=== PATIENT | female | born 1950 | race Caucasian/White ===

== ENCOUNTER 2019-05-23 10:06 | Inpatient (IN) ==
[2019-05-23] MEDS ORDERED: *HR* FentaNYL (PF) 100 MCG/2 ML VIAL ONE (10:39)
[2019-05-23] MEDS ORDERED: *HR* Midazolam HCl 2 MG/2 ML VIAL ONE (10:39)
[2019-05-23] MEDS ORDERED: *HR* Propofol 200 MG/20 ML VIAL IVP ONE (10:39)
[2019-05-23] MEDS ORDERED: Lidocaine HCL 4 ML Topical Solution (Laryng-O-Jet Kit Sterile Pak) TP ONE (10:41)
[2019-05-23] MEDS ORDERED: *HR* Succinylcholine 200 MG/10 ML VIAL IVP ONE (10:41)
[2019-05-23] MEDS ORDERED: Clindamycin 900 MG/50 ML 900 MG/50 ML IV.SOLN IVPB ONE (10:41)
[2019-05-23] MEDS ORDERED: Ondansetron 4 MG/2 ML VIAL ONE (10:41)
[2019-05-23] MEDS ORDERED: Lidocaine -MPF 2% 2 ML VIAL ONE (10:41)
[2019-05-23] MEDS ORDERED: Albuterol 2.5 MG/3 ML NEBULIZER IH PRN (10:41)
[2019-05-23] MEDS ORDERED: Tranexamic Acid 1,000 MG/10 ML VIAL ONE ×2 (10:50→13:51)
[2019-05-23] MEDS ORDERED: Famotidine 20 MG/2 ML VIAL IVP ONE (11:23)
[2019-05-23] MEDS ORDERED: Acetaminophen IV 1,000 MG/100 ML INFUS..BTL IVPB ONE (11:24)
[2019-05-23] MEDS ORDERED: *HR* HYDROmorphone 2 MG TABLET PO PRN (11:24)
[2019-05-23] MEDS ORDERED: *HR* OxyCODONE Immed Rel 5 MG TABLET PO PRN ×2 (11:24→15:55)
[2019-05-23] MEDS ORDERED: ROPIVACAINE/PF/NS 0.25% 1 EACH SYRINGE INTRAART ONE (11:28)
[2019-05-23] MEDS ORDERED: Ropivacaine/PF 0.5% 30 ML VIAL ONE (11:28)
[2019-05-23] MEDS ORDERED: Ethanol\\Acetic Acid\\Na Ace\\Ben 1,000 ML IRRIG.SOLN IR ONE (11:29)
[2019-05-23] MEDS: Ringers Solution, Lactated 1,000 ML IVC SCH ×2 (11:33→13:30)
[2019-05-23] MEDS ORDERED: EPHEDrine 50 MG/ML VIAL ONE (12:44)
[2019-05-23] MEDS ORDERED: *HR* PHENYLEPHRINE 1,000 MCG/10 ML SYRINGE IVP ONE (12:48)
[2019-05-23] MEDS ORDERED: *HR* Rocuronium Bromide 50 MG/5 ML VIAL ONE (13:36)
[2019-05-23] MEDS ORDERED: Neostigmine Methylsulfate 3 MG/3 ML SYRINGE ONE (14:29)
[2019-05-23] MEDS ORDERED: MOM Conc 10 ML UD.LIQ PO PRN (15:55)
[2019-05-23] MEDS ORDERED: *HR* OxyCODONE/APAP 5/325 TABLET PO PRN ×2 (15:55)
[2019-05-23] MEDS ORDERED: Ringers Solution, Lactated 1,000 ML IVC SCH (15:55)
[2019-05-23] MEDS ORDERED: Sennosides 8.6 MG TABLET PO PRN (15:55)
[2019-05-23] MEDS ORDERED: traMADol 50 MG TABLET PO PRN (15:55)
[2019-05-23] MEDS ORDERED: Temazepam 15 MG CAPSULE PO PRN (15:55)
[2019-05-23] MEDS ORDERED: tiZANidine 4 MG TABLET PO PRN (15:55)
[2019-05-23] MEDS ORDERED: Ondansetron 4 MG/2 ML VIAL IVP PRN (15:55)
[2019-05-23] MEDS ORDERED: *HR* Glimepiride 2 MG TABLET PO SCH (18:00)
[2019-05-23] MEDS: Gabapentin 300 MG CAPSULE PO SCH ×2 (18:26→20:18)
[2019-05-23] MEDS: BuPROPion SR (12 HR) 150 MG TABLET PO SCH (20:18)
[2019-05-23] MEDS: Clindamycin 900 MG/50 ML 900 MG/50 ML IV.SOLN IVPB SCH (20:19)
[2019-05-23] MEDS ORDERED: Metoprolol XL (24 HR) Succ 50 MG TAB.ER.24H PO SCH (21:00)
[2019-05-23] MEDS ORDERED: Melatonin 3 MG TABLET PO SCH (21:00)
[2019-05-24] MEDS: Clindamycin 900 MG/50 ML 900 MG/50 ML IV.SOLN IVPB SCH (03:01)
[2019-05-24 07:37] VITALS: BP 99/65
[2019-05-24] MEDS ORDERED: *HR* Glimepiride 2 MG TABLET PO SCH (09:00)
[2019-05-24] MEDS ORDERED: Loratadine 10 MG TABLET PO SCH (09:00)
[2019-05-24] MEDS ORDERED: NON-FORMULARY MEDICATION 1 EACH EACH (Biotin 1 MG) PO SCH (09:00)
[2019-05-24] MEDS ORDERED: Cholecalciferol (D-3) 1,000 UNIT (25MCG) TABLET PO SCH (09:00)
[2019-05-24] MEDS ORDERED: Furosemide 40 MG TABLET PO SCH (09:00)
[2019-05-24] MEDS ORDERED: Vitamin B Complex/Vit C/Vit E 1 EACH TABLET PO SCH (09:00)
[2019-05-24] MEDS ORDERED: Cyanocobalamin (B-12) 1,000 MCG TABLET PO SCH (09:00)
[2019-05-24] MEDS ORDERED: ZINC 50 MG PO SCH (09:00)
[2019-05-24] MEDS: BuPROPion SR (12 HR) 150 MG TABLET PO SCH (09:04)
[2019-05-24] MEDS: Gabapentin 300 MG CAPSULE PO SCH (09:04)
[2019-05-24] MEDS ORDERED: *HR* Enoxaparin 30 MG/0.3 ML SYRINGE SQ SCH (18:00)
== END 2019-05-24 12:30 | disposition home or self-care (01) | DRG 483 ==
LOC: SAMDAY 10:06 → 3NENU 15:52
PROVIDERS: ADMIT Orthopaedic Surgery Sports Medicine; ATTEND Orthopaedic Surgery Sports Medicine